=== PATIENT | male | born 1995 | race Caucasian/White ===

== ENCOUNTER 2021-10-12 11:21 | Emergency (ER) | payer MEDICARE, BC, MEDICAID ==
[~2021-10-12] VITALS: Ht 188 cm; Wt 64.5 kg
[~2021-10-12 11:21] MED LIST: LORA-269 PO
[2021-10-12 11:29] VITALS: BP 110/80
[2021-10-12] MEDS: LIDOcaine/epinephrine/tetracaine TOPICAL sol 3 ML syringe TOP ONE ×2 (11:40→12:04)
[2021-10-12] MEDS: bacitracin 15gm ointment TP ONE ×2 (11:40→12:35)
[2021-10-12] MEDS ORDERED: TETanus/Pertussis (Acell)/Diphther VAC/PF (Tdap-Adult) 0.5ml syringe IMVAC ONE (11:40)
== END 2021-10-12 13:04 | disposition home or self-care (01) ==
LOC: ER 11:22
DX: S01.81XA Laceration without foreign body of other part of head, initial encounter (principal); F17.200 Nicotine dependence, unspecified, uncomplicated; Z72.89 Other problems related to lifestyle; Z79.899 Other long term (current) drug therapy; W01.0XXA Fall on same level from slipping, tripping and stumbling without subsequent striking against object, initial encounter; Y93.B2 Activity, push-ups, pull-ups, sit-ups; Y92.89 Other specified places as the place of occurrence of the external cause; Y99.8 Other external cause status
CPT/HCPCS: 12013; 90471; 90715; 99283; J3490